=== PATIENT | female | born 1975 | race African-American/Black ===

== ENCOUNTER → 2017-07-05 | Outpatient (CLI) | payer BC, OTHER ==
[~2017-07-05] MED LIST: OPTIRAY 320 IV PRN
--- NOTE | 2017-07-05 10:15 | DIAGNOSTIC IMAGING REPORT ---
ABD/PELVIS IV AND ORAL CONT CLINICAL HISTORY: 41 years-old Female presenting with ABDOMINAL PAIN, POSSIBLE MASS, HIV INFECTION. TECHNIQUE: Multidetector CT of the abdomen and pelvis was performed after the administration of oral and intravenous contrast. IV contrast: 94 mL of Optiray 320. A dose lowering technique was used consistent with the principles of ALARA (as low as reasonably achievable). COMPARISON: None. CT DOSE (mGy.cm): The estimated cumulative dose is 891.71 mGycm. FINDINGS: Tailor Helper topogram: Unremarkable. Lung bases: Minimal basilar opacities, likely atelectasis. Normal heart size. No pericardial or pleural effusion. Liver: Normal morphology. Several subcentimeter hypodensities scattered throughout the liver, likely hepatic cysts or hamartomas. Patent hepatic vasculature. Biliary: No intrahepatic or extrahepatic biliary ductal dilatation. Normal gallbladder. Pancreas: Normal. Spleen: Normal. Soft tissue nodule adjacent to the spleen may represent a splenule (series 3 image 103). Adrenal glands: Normal. Kidneys and ureters: Normal. No hydronephrosis. Bladder: Incompletely evaluated secondary to underdistention. Pelvic organs: Uterus surgically absent. Normal ovaries. Bowel: Normal appendix. No bowel obstruction. Peritoneal cavity: No free fluid or intraperitoneal gas. Lymph nodes: No enlarged lymph nodes in the abdomen or pelvis. Vasculature: Aorta and IVC patent and normal in caliber. Abdominal wall: Small fat-containing umbilical hernia. Musculoskeletal: Normal. IMPRESSION: 1. No acute intra-abdominal pathology. No mass lesion is apparent. Electronically signed by: Miquel Yuen M.D. 07/05/2017 10:14 AM Dictated Date/Time: 07/05/2017 10:07 AM
== END | disposition home or self-care (01) ==
LOC: C.CTS 08:31
PROVIDERS: ATTEND Internal Medicine Infectious Disease
DX: B20 Human immunodeficiency virus [HIV] disease (principal); R10.9 Unspecified abdominal pain